=== PATIENT | female | born 1970 | race Caucasian/White ===

== ENCOUNTER 2017-11-15 11:53 | Emergency (ER) | payer OTHER ==
[~2017-11-15] VITALS: Ht 162.6 cm; Wt 83.6 kg
[2017-11-15] MEDS ORDERED: CEFTRIAXONE 1,000 MG ONE (12:37)
[2017-11-15] MEDS ORDERED: ALBUTEROL SULFATE 2.5 MG/3 ML NPPB SCH (13:30)
[2017-11-15] MEDS ORDERED: CEFTRIAXONE 1,000 MG IM ONE (13:30)
[2017-11-15] MEDS ORDERED: ALBUTEROL SULFATE 2.5MG/0.5ML ONE (13:39)
[2017-11-15] MEDS ORDERED: ALBUTEROL SULFATE 2.5 MG/3 ML ONE (13:39)
[2017-11-15 14:04] VITALS: BP 127/78
== END 2017-11-15 14:07 | disposition home or self-care (01) ==
LOC: ED 13:30
DX: J01.00 Acute maxillary sinusitis, unspecified (principal); J45.901 Unspecified asthma with (acute) exacerbation; F17.200 Nicotine dependence, unspecified, uncomplicated
CPT/HCPCS: 94640; 96372; 99283; J0696; J7512; J7613

== ENCOUNTER 2018-08-19 11:29 | Emergency (ER) | payer SELFPAY ==
[~2018-08-19] VITALS: Ht 162.6 cm; Wt 83.0 kg
[~2018-08-19 11:29] MED LIST: DILT180C2 PO
[2018-08-19 11:33] VITALS: BP 170/108
--- NOTE | 2018-08-19 11:54 | NUR ---
pt placed in room and in gown. cont cardiac, o2 and nibp monitoring in place. pt is unable to sit still in bed and pops neck multiple times by throwing her head back in a backwards motion. when asked why she is popping her neck she states this is what she does.
[2018-08-19] MEDS ORDERED: ASPIRIN 81 MG TABLET CHEW PO ONE (12:00)
[2018-08-19] MEDS ORDERED: CYCLOBENZAPRINE 10 MG TABLET PO ONE (12:00)
[2018-08-19] MEDS ORDERED: KETOROLAC 30 MG/1 ML IM ONE (12:00)
[2018-08-19] MEDS ORDERED: CYCLOBENZAPRINE 10 MG TABLET ONE (12:15)
[2018-08-19] MEDS ORDERED: ASPIRIN 81 MG TABLET CHEW ONE (12:15)
[2018-08-19] MEDS ORDERED: KETOROLAC 30 MG/1 ML ONE (12:15)
--- NOTE | 2018-08-19 12:37 | NUR ---
in room to medicate pt. pt yells at this rn "turn down the magnetic feild in this room, I am very sensitive and in tune with it. I can't have it in this room and it is in my chart. you should know that."
[2018-08-19 12:40] LABS: BASOPHILS # (AUTO) 0.06 x10^3/uL (0-0.1); BASOPHILS % (AUTO) 0 % (0-1); EOSINOPHILS # (AUTO) 0.06 x10^3/uL (0-0.4); EOSINOPHILS % (AUTO) 0 % (1-7); LYMPHOCYTES # (AUTO) 3.92 x10^3/uL (1-3.4); LYMPHOCYTES % (AUTO) 26 % (22-44); MD NO; MEAN CORPUSCULAR HEMOGLOBIN 33.3 pg (27.0-34.8); MEAN CORPUSCULAR HGB CONC 34.2 g/dL (32.4-35.8); MEAN CORPUSCULAR VOLUME 97.2 fL (80-100); MEAN PLATELET VOLUME 8.7 fL (7.4-10.4); MONOCYTES # (AUTO) 0.53 x10^3/uL (0.2-0.8); MONOCYTES % (AUTO) 4 % (2-9); NEUTROPHILS # (AUTO) 10.34 x10^3/uL (1.8-6.8); NEUTROPHILS % (AUTO) 69 % (42-75); PLATELET COUNT 337 x10^3/uL (130-400); RED BLOOD COUNT 4.83 x10^6/uL (3.82-5.3); RED CELL DISTRIBUTION WIDTH 14.5 % (9.6-15.2)
[2018-08-19 12:53] LABS: ALBUMIN 4.1 g/dL (3.4-5.0); ANION GAP 6 mmol/L (5-15); CALCIUM 9.7 mg/dL (8.5-10.1); CHLORIDE 109 mmol/L (98-107); CREATININE 0.78 mg/dL (0.55-1.02)
[2018-08-19 12:57] LABS: TROPONIN I < 0.015 ng/mL (0.000-0.045)
--- NOTE | 2018-08-19 13:14 | NUR ---
pt in room at this time.pt refusing to answer any further question. report from ct was that pt was rude and refused to answer any questions as well. Addendum: 08/19/18 at 1316 by KATIE report from x-ray
--- NOTE | 2018-08-19 13:43 | NUR ---
pt refusing vital signs at this time. upon dc pt demands to be given nitro and something "stronger for pain." pt requests copies of labs, a ekg, and imaging which are provided. pt reveiwing labs now and wondering where her drug screen is and where the c-reactive protein lab is. pt refusing to leave at this time and dr hill will be made aware.
--- NOTE | 2018-08-19 13:57 | NUR ---
dr hill made aware of situation and pt informed that her care was appropriate and she needs to follow up with her healthcare provider. as long as she is refusing vital signs we can provide no meds for bp. per dr hill the most appropriate pain med was prescribed. pt walked to discharge with a steady gait.
== END 2018-08-19 14:09 | disposition home or self-care (01) ==
LOC: ED 14:01
DX: R07.89 Other chest pain (principal); R00.2 Palpitations; I10 Essential (primary) hypertension; F17.200 Nicotine dependence, unspecified, uncomplicated; J45.909 Unspecified asthma, uncomplicated
CPT/HCPCS: 36415; 71046; 80048; 82040; 84484; 85025; 93005; 96372; 99284; J1885